=== PATIENT | female | born 1965 | race Caucasian/White ===

== ENCOUNTER 2021-08-27 11:27 | Outpatient (REF) | payer OTHER, SELFPAY ==
--- NOTE | ~2021-08-27 | US_ITS ---
EXAMINATION: US VENOUS ULTRASOUND WITH DOPPLER LOWER EXTREMITY, RIGHT CLINICAL INFORMATION: Pain COMPARISON: None TECHNIQUE: Ultrasound of the deep veins is performed from the hip to the calf with compression sonography and color and pulse Doppler assessment. Spectral analysis with color-flow imaging is performed. FINDINGS: There is normal venous compression and respiratory variation and augmented flow. The visualized common femoral vein, superficial femoral vein, profunda femoral vein, popliteal vein, and the trifurcation region shows no evidence of deep venous thrombosis. There is a complex partially solid partially cystic soft tissue mass in the medial popliteal fossa/proximal calf. This measures 4.8 x 3.9 x 4.1 cm. This abuts the popliteal artery and vein. It is uncertain whether this represents a hematoma, tear of the gastrocnemius or popliteus muscle or mass lesion. US/US venous duplex LE RT IMPRESSION: No DVT demonstrated in the right lower extremity. Complex partially solid partially cystic mass in the popliteal fossa measuring 4 x 5 cm. Differential would include a hematoma, tear of the gastrocnemius previous muscle and mass. Appearance is more heterogeneous and solid than normally seen with a complex Winchester's cyst. This could be better evaluated with MRI if clinically indicated.
== END 2021-08-27 11:28 | disposition home or self-care (01) ==
LOC: HO.HMGCX 11:27
PROVIDERS: Visit Provider Physician Assistant Medical
DX: M79.661 Pain in right lower leg (principal); S86.919A Strain of unspecified muscle(s) and tendon(s) at lower leg level, unspecified leg, initial encounter
CPT/HCPCS: 93971

== ENCOUNTER → 2021-12-11 10:28 | Outpatient (BNVA) | payer OTHER, SELFPAY | PROVIDERS: Visit Provider Physician Assistant | DX: S00.83XA Contusion of other part of head, initial encounter (principal); S40.011A Contusion of right shoulder, initial encounter; S70.01XA Contusion of right hip, initial encounter; T14.8XXA Other injury of unspecified body region, initial encounter; W00.0XXA Fall on same level due to ice and snow, initial encounter | CPT/HCPCS: 99203 ==